=== PATIENT | female | born 1975 | race Caucasian/White ===

== ENCOUNTER 2019-07-01 09:16 | Emergency (ER) | payer BC, SELFPAY ==
[2019-07-01 09:25] VITALS: BP 135/86; PULSE 103; RESP 18; TEMP 37.2; O2SAT 100
--- NOTE | 2019-07-01 09:42 | ED.SKABFB ---
HPI - Skin/Abscess/Foreign Bdy General Chief complaint: Skin/Abscess/Foreign Body Stated complaint: knat bites Time Seen by Provider: 07/01/19 09:37 Source: patient and RN notes reviewed Mode of arrival: ambulatory Limitations: no limitations History of Present Illness HPI narrative: 44 old female presents with concern for possible insect bites. Reports red, warm, tender area on her left forearm that occurred an hour after being bit by an insect yesterday. Reports a similar red, warm area on her right thigh that occurred after being bit by an insect yesterday. She reports similar instances of this in the past for which she has seen an systems navigator. She reports she has been treated for cellulitis and for allergic reactions for these bites. Reports that the systems navigator told her these bites are not cellulitis. She denies malaise, fever. MD complaint: insect bite/sting Related Data Home Medications Medication Instructions Recorded Confirmed alprazolam 0.25 mg PO DAILY 07/01/19 07/01/19 Allergies Allergy/AdvReac Type Severity Reaction Status Date / Time esomeprazole [From Nexium] Allergy Hives Verified 07/01/19 09:36 Review of Systems Review of Systems: Narrative: CONSTITUTIONAL: Denies malaise, chills, sweats, or fever. EYES: Denies redness, or discharge. ENT: Denies difficulty swallowing, swollen tongue, swollen lips, sore throat. CARDIOVASCULAR: Denies chest pain, palpitations RESPIRATORY: Denies dyspnea. GASTROINTESTINAL: Denies abdominal pain, nausea, vomiting, diarrhea SKIN: Red, hard, tender area on the left forearm, reports red, hard area on the right thigh MUSCULOSKELETAL: Denies joint pain or myalgia. NEUROLOGIC: Denies numbness, weakness, or headache. All systems reviewed & are unremarkable except as noted in HPI and below PMFSH Family History Family History (Updated 09/12/15 @ 23:21 by DOCTOR UNKNOWN) Mother Patient's mother is in good health Father Patient's father is in good health Sibling Patient's brother is in good health Social History Social History Alcohol intake: never Comments At time of signature, agree with nursing past medical, surgical, social and family history. There is no relevant family history pertinent to the presenting complaint Exam Narrative: Exam Narrative: GENERAL: Well-appearing, well-nourished, and in no acute distress. HEAD: Normocephalic EYES: PERRLA, conjunctivae clear ENT: Mucous membranes moist. NECK: Supple. CHEST: No respiratory distress. Speaks in full sentences. HEART: Regular rate and rhythm. EXTREMITIES: Grossly normal range of motion. Grossly normal strength and sensation. SKIN: Warm, dry. 20 cm x 8 cm patch of induration, erythema, warmth, tenderness to the left forearm. 8 cm in diameter patch of erythema, induration noted to the right thigh NEURO: Alert and oriented x3. PSYCH: Normal mood and affect Course Course Emergency Course: Discussed with patient cellulitis versus local insect bite reaction. At this time symptoms seem to be caused by a local insect reaction. Discussed with patient cephalexin prescription to fill if symptoms worsen within the next 36 hours. Patient is aware of diagnosis, understands and agrees to treatment plan. Anticipatory guidance given. Patient agrees to follow-up as directed and is aware of reasons to seek care at the emergency department. Portions of this record may have been created with voice recognition software Vital Signs Vital signs: Vital Signs Temperature 98.9 F 07/01/19 09:25 Pulse Rate 103 H 07/01/19 09:25 Respiratory Rate 18 07/01/19 09:25 Blood Pressure 135/86 07/01/19 09:25 Pulse Oximetry 100 07/01/19 09:25 Temperature 98.9 F 07/01/19 09:25 Pulse Rate 103 H 07/01/19 09:25 Respiratory Rate 18 07/01/19 09:25 Blood Pressure 135/86 07/01/19 09:25 Pulse Oximetry 100 07/01/19 09:25 Reviewed. MDM - Skin/Abscess/Foreign Bdy MDM Narrative Medical decision jonnie
== END 2019-07-01 09:48 | disposition home or self-care (01) ==
PROVIDERS: Emergency Provider Nurse Practitioner
DX: S50.862A Insect bite (nonvenomous) of left forearm, initial encounter (principal); W57.XXXA Bitten or stung by nonvenomous insect and other nonvenomous arthropods, initial encounter
CPT/HCPCS: 99213; G0463

== ENCOUNTER 2021-11-29 11:05 | Emergency (ER) | payer BC, SELFPAY ==
[2021-11-29 11:10] VITALS: BP 163/96; PULSE 114; RESP 20; TEMP 36.7; O2SAT 98
[2021-11-29 11:17] VITALS: BP 163/96; PULSE 114; RESP 20; TEMP 36.7; O2SAT 98
--- NOTE | 2021-11-29 11:30 | ED.GENADULT ---
HPI - General Adult General Chief complaint: Upper Respiratory Infection Stated complaint: Sore Throat Source: patient Mode of arrival: ambulatory Limitations: no limitations History of Present Illness HPI narrative: Patient presents for evaluation of sore throat. Symptom onset 6 days ago. She has associated nasal congestion. She denies any fever, chills, nausea, vomiting. She has an occasional dry cough but nothing bothersome. No shortness of breath or chest pain. She has a few family members with similar symptoms. She took two home COVID tests which were negative. She had COVID at the start of this year. She smokes 1 pack/day. She tried taking DayQuil and other [id number] therapies without considerable improvement in her symptoms thereafter. Related Data Allergies Allergy/AdvReac Type Severity Reaction Status Date / Time esomeprazole [From Nexium] Allergy Intermediate Hives Verified 11/29/21 11:18 Review of Systems Review of Systems: CONSTITUTIONAL: Denies fever, chills, or sweats. EYES: Denies visual changes, redness, or discharge. ENT: Reports sore throat and sinus congestion. Denies nasal discharge or otalgia. CARDIOVASCULAR: Denies chest pain, palpitations, or edema. RESPIRATORY: Reports occasional nonproductive cough. Denies SOB. GASTROINTESTINAL: Denies abdominal pain, nausea, vomiting, or diarrhea. GENITOURINARY: Denies dysuria or hematuria. SKIN: Denies rash or itching. MUSCULOSKELETAL: Denies back pain, joint pain, or myalgia. NEUROLOGIC: Denies headache, numbness, dizziness, or weakness. PSYCHIATRIC: Denies anxiety or depression. [facility] Past Medical History Medical History Anxiety and depression Hypertension Surgical History Surgical History History of endometrial ablation History of gynecological procedure (10/03/08) hscope D&C/ Novasure Ablation History of gynecological procedure (02/27/08) DX Hscope History of gynecological procedure (01/22/04) bilateral tubal ligation partial right salpingectomy with benign paratubal hydatids of morgagni cyst History of gynecological procedure (01/15/00) vulvar biopsy - c/w condyloma acuminatum History of gynecological procedure (10/16/98) Hscope , emb History of gynecological procedure (03/12/98) suction D&C/ missed AB POC Family History Family History Mother Breast cancer, Onset Age: 63 Hypertension Depression Anxiety Father Patient's father is in good health Sibling Patient's brother is in good health Social History Social History Smoking packs per day: 1 Smoking cigarettes per day: 20.0 Smoking status: Current every day smoker Tobacco type: cigarettes Alcohol intake: never Substance use: never Substance use type: does not use Additional living arrangements comments: spouse 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 HEAD: Normocephalic, atraumatic. EYES: PERRLA and EOMI. ENT: Nares clear, no rhinorrhea or epistaxis. Mucous membranes moist. Oropharynx without tonsillar hypertrophy exudate or other lesions. There is posterior pharyngeal erythema. Bilateral TMs pearly watkins nonbulging NECK: Supple. No adenopathy or masses. No carotid bruits or JVD CHEST: Clear to auscultation. No respiratory distress. No wheezes rales or rhonchi HEART: Regular rate and rhythm. No murmur heard. Normal peripheral pulses. ABDOMEN: Soft, nontender, nondistended, normal active bowel sounds. EXTREMITIES: Normal range of motion. No edema. SKIN:
== END 2021-11-29 11:40 | disposition home or self-care (01) ==
PROVIDERS: Emergency Provider Nurse Practitioner
DX: J02.9 Acute pharyngitis, unspecified (principal); F17.210 Nicotine dependence, cigarettes, uncomplicated; I10 Essential (primary) hypertension
CPT/HCPCS: 87081; 87880; 99213; G0463

== ENCOUNTER 2022-01-24 10:46 | Emergency (ER) | payer BC, SELFPAY ==
--- NOTE | ~2022-01-24 | XR_ITS ---
EXAMINATION: XR chest 2V DATE: 01/24/2022 11:50 INDICATION: Cough. Fever. TECHNIQUE: Frontal and lateral views of the chest were obtained. COMPARISON: Chest 2 views 12/26/2011 FINDINGS: There is no pneumonia, pleural effusion, pneumothorax. The heart size is normal. There is a prominent left paracardial fat pad. IMPRESSION: 1. No acute cardiopulmonary disease. Reviewed, dictated and finalized at location A. ETHYLENE [employer]BINER
[2022-01-24 11:03] VITALS: BP 154/98; PULSE 109; RESP 18; TEMP 36.9; O2SAT 100
[2022-01-24 12:08] LABS: Influenza A QL RT-PCR Positive (Negative); Influenza B QL RT-PCR Negative (Negative); RSV RNA, RT-PCR Negative (Negative); SARS-CoV-2 RNA PCR Negative
--- NOTE | 2022-01-24 12:26 | ED.URI ---
HPI - URI/Sore Throat General Chief Complaint: Upper Respiratory Infection Stated Complaint: FLU S/SX Time Seen by Provider: 01/24/22 11:03 History of Present Illness HPI Narrative: 46-year-old female history of hypertension and anxiety presents to the emergency room for evaluation of generalized fatigue, body aches subjective fever, chest tightness with wheezing. Patient states her was recently diagnosed with influenza. Has been taking Tylenol and [id number] cough preparations with no improvement of her symptoms. Related Data Allergies Allergy/AdvReac Type Severity Reaction Status Date / Time esomeprazole [From Nexium] Allergy Intermediate Hives Verified 11/29/21 11:18 Review of Systems Review of Systems: CONSTITUTIONAL: Reports fever EYES: Denies visual changes, redness, or discharge. ENT: Denies rhinorrhea, congestion, sore throat, or otalgia. CARDIOVASCULAR: Denies chest pain, palpitations, or edema. RESPIRATORY: Reports cough and wheezing GASTROINTESTINAL: Denies abdominal pain, nausea, vomiting, or diarrhea. GENITOURINARY: Denies dysuria or hematuria. SKIN: Denies rash or itching. MUSCULOSKELETAL: Reports myalgias NEUROLOGIC: Denies headache, numbness, dizziness, or weakness. PSYCHIATRIC: Denies anxiety or depression. [facility] Past Medical History Medical History Anxiety and depression Hypertension Surgical History Surgical History History of endometrial ablation History of gynecological procedure (10/03/08) hscope D&C/ Novasure Ablation History of gynecological procedure (02/27/08) DX Hscope History of gynecological procedure (01/22/04) bilateral tubal ligation partial right salpingectomy with benign paratubal hydatids of morgagni cyst History of gynecological procedure (01/15/00) vulvar biopsy - c/w condyloma acuminatum History of gynecological procedure (10/16/98) Hscope , emb History of gynecological procedure (03/12/98) suction D&C/ missed AB POC Family History Family History Mother Breast cancer, Onset Age: 63 Hypertension Depression Anxiety Father Patient's father is in good health Sibling Patient's brother is in good health Social History Social History Smoking packs per day: 1 Smoking cigarettes per day: 20.0 Smoking status: Current every day smoker Tobacco type: cigarettes Alcohol intake: never Substance use: never Substance use type: does not use Additional living arrangements comments: spouse 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 HEAD: Normocephalic, atraumatic. EYES: Conjunctivae normal, PERRLA and EOMI. ENT: External nose normal, Nares clear, no rhinorrhea or epistaxis. Mucous membranes moist. Oropharynx without tonsillar hypertrophy exudate or other lesions. External ears normal, bilateral TMs normal bilaterally NECK: Supple. No adenopathy or masses. CHEST: Inspiratory wheezing HEART: Regular rate and rhythm. No murmur heard. Normal peripheral pulses. ABDOMEN: Soft, nontender, nondistended, normal active bowel sounds. EXTREMITIES: Normal range of motion. No edema. No clubbing or cyanosis SKIN: Warm, dry, no rash. No noted wounds NEURO: No focal deficits. Alert and oriented x3. MAEW. CN's II-XI intact bilaterally, normal gait PSYCH: Cooperative. Normal mood and affect. Course Vital Signs Vital signs: Vital Signs Temperature 36.9 C 01/24/22 11:03 Pulse Rate 109 H 01/24/22 11:03 Respiratory Rate 18 01/24/22 11:03 Blood Pr
[2022-01-24 12:30] VITALS: PULSE 92; RESP 20
[2022-01-24] MEDS: ALBUTEROL SULFATE NEB 2.5 MG/3 ML INH INHALATION (12:35)
[2022-01-24] MEDS: IPRATROPIUM BR 0.02% INH SOLN 0.5 MG/2.5 ML VIAL INHALATION (12:37)
[2022-01-24 12:45] VITALS: PULSE 96; RESP 20
== END 2022-01-24 13:17 | disposition home or self-care (01) ==
PROVIDERS: Emergency Provider Nurse Practitioner Family
DX: J10.1 Influenza due to other identified influenza virus with other respiratory manifestations (principal); Z20.822 Contact with and (suspected) exposure to COVID-19; I10 Essential (primary) hypertension; F17.200 Nicotine dependence, unspecified, uncomplicated
CPT/HCPCS: 71046; 87637; 94640; 96372; 99283; J1100

== ENCOUNTER 2022-05-12 09:02 | Emergency (ER) | payer BC, SELFPAY ==
--- NOTE | ~2022-05-12 | XR_ITS ---
Clinical Indication: Chest pain PA and lateral views of the chest: Comparison: 01/24/2022 Findings: The lungs are clear, without evidence of focal consolidation or pleural effusion. Cardiome diastinal silhouette is within normal limits. Bones and soft tissues are unremarkable. Impression: Normal chest. Reviewed, dictated and finalized at location . Impression: Normal chest.
--- NOTE | 2022-05-12 09:09 | ECG_ITS ---
Measurements Intervals Rover Rate: 105 P: 63 NM: 128 QRS: 65 QRSD: 90 T: 50 QT: 317 QTc: 420 Interpretive Statements SINUS TACHYCARDIA POSSIBLE LEFT ATRIAL ENLARGEMENT MINIMAL Q WAVES- INFERIOR LEADS BORDERLINE ST ABNORMALITY- INF/LAT LEADS BORDERLINE ECG NO PREVIOUS ECG AVAILABLE FOR COMPARISON Electronically Signed On 05-12-2022 9:51:40 CDT by Khoa Soto D.O.
[2022-05-12 09:10] VITALS: BP 154/86; PULSE 112; RESP 20; TEMP 36.3; O2SAT 100
[2022-05-12 09:27] LABS: Basophils Absolute Auto 0.1 K/mm3 (0.0-0.1); Basophils Percent Auto 0.8 % (0.2-1.2); Eosinophils Absolute Auto 0.1 K/mm3 (0-0.3); Eosinophils Percent Auto 0.9 % (0-4.4); Hematocrit 44.9 % (37.0-47.0); Hemoglobin 15.2 g/dL (12.0-15.0); Immature Granulocyte Absolute 0.08 K/mm3 (0.00-0.031); Immature Granulocyte Percent A 0.7 % (0-0.5); Lymphocytes Absolute Auto 3.07 K/mm3 (0.9-3.2); Lymphocytes Percent Auto 27.7 % (18.3-44.2); Mean Corpuscular HGB Conc 33.9 g/dl (32-36); Mean Corpuscular Hemoglobin 32.4 pg (26-34); Mean Corpuscular Volume 95.7 fl (80-100); Mean Platelet Volume 9.2 fl (7.4-10.4); Monocytes Absolute Auto 0.9 K/mm3 (0.1-0.6); Monocytes Percent Auto 8.5 % (2.6-8.5); Neutrophils Absolute Auto 6.8 K/mm3 (1.3-6.7); Neutrophils Percent Auto 61.4 % (45.5-73.1); Platelet Count Result 312 k/mm3 (150-375); Red Blood Count 4.69 M/mm3 (4.2-5.4); Red Cell Distribution Width 13.1 % (11.5-14.5); White Blood Count 11.1 K/mm3 (4.5-10.0)
[2022-05-12 09:37] LABS: Alanine Aminotransferase 20 U/L (6-35); Albumin Level 4.2 g/dL (3.5-5.1); Alkaline Phosphatase 83 U/L (38-126); Anion Gap 5 mmol/L (8-16); Aspartate Amino Transferase 18 U/L (14-36); Bilirubin,Total 0.4 mg/dL (0.2-1.3); Blood Urea Nitrogen 12 mg/dL (7-17); Calcium 9.2 mg/dL (8.4-10.2); Carbon Dioxide 28 mmol/L (22-30); Chloride 106 mmol/L (98-107); Estimated CRCL calculation 90 ml/min; Estimated Glomerular Filt Rate > 60; Glucose 90 mg/dL (65-110); Lipase 133 U/L (23-300); Potassium 3.9 mmol/L (3.4-5.0); Sodium 139 mmol/L (137-145)
[2022-05-12 09:41] LABS: INR 0.9; Prothrombin Time 11.7 Seconds (11.1-14.7)
[2022-05-12 09:49] LABS: Troponin I < 0.012 ng/mL (0.000-0.034)
[2022-05-12] MEDS: ASPIRIN 81 MG CHEWABLE TABLET 324 MG PO (09:50)
[2022-05-12] MEDS: KETOROLAC (*BKC) 60 MG/2 ML VIAL IM (10:17)
[2022-05-12 10:37] VITALS: BP 155/90; PULSE 96; RESP 16; O2SAT 100
--- NOTE | 2022-05-12 11:40 | ED.CHESTPAIN ---
HPI - Chest Pain General Chief Complaint: Chest Pain Stated Complaint: chest/back pain Time Seen by Provider: 05/12/22 09:49 History of Present Illness HPI narrative: Patient is a 46-year-old female who presents ER with left upper chest and back discomfort. Worse with physical movement and deep breath. Initially she had been having low back pain on left side that then moved up into the upper back. No fevers or chills or sweats. No exertional dyspnea. No coughing up blood. She is not on any hormones. No lower extremity swelling or calf pain. No exertional chest discomfort. Related Data Allergies Allergy/AdvReac Type Severity Reaction Status Date / Time esomeprazole [From Nexium] Allergy Intermediate Hives Verified 11/29/21 11:18 Review of Systems Review of Systems: All systems reviewed & are unremarkable except as noted in HPI and below Constitutional: Constitutional: Denies chills, Denies fatigue and Denies fever(s) ENT: Denies nasal congestion and Denies sore throat Cardiovascular: Cardiovascular: Reports chest pain, Denies rapid heart rate and Denies radiating jaw, neck or arm pain Respiratory: Respiratory: Denies cough and Denies dyspnea Gastrointestinal: Gastrointestinal: Denies abdominal pain, Denies diarrhea, Denies nausea and Denies vomiting Genitourinary: Genitourinary: Denies flank pain PMFSH Past Medical History Medical History Anxiety and depression Hypertension Surgical History Surgical History History of endometrial ablation History of gynecological procedure (10/03/08) hscope D&C/ Novasure Ablation History of gynecological procedure (02/27/08) DX Hscope History of gynecological procedure (01/22/04) bilateral tubal ligation partial right salpingectomy with benign paratubal hydatids of morgagni cyst History of gynecological procedure (01/15/00) vulvar biopsy - c/w condyloma acuminatum History of gynecological procedure (10/16/98) Hscope , emb History of gynecological procedure (03/12/98) suction D&C/ missed AB POC Family History Family History Mother Breast cancer, Onset Age: 63 Hypertension Depression Anxiety Father Patient's father is in good health Sibling Patient's brother is in good health Social History Social History Smoking packs per day: 1 Smoking cigarettes per day: 20.0 Smoking status: Current every day smoker Tobacco type: cigarettes Alcohol intake: never Substance use: never Substance use type: does not use Living arrangements: other Additional living arrangements comments: spouse Occupation/Education: occupation 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 HEAD: Normocephalic, atraumatic. EYES: PERRL and EOMI. ENT: Mucous membranes moist. CHEST: Clear to auscultation. No respiratory distress. HEART: Regular rate and rhythm. Normal peripheral pulses. ABDOMEN: Soft, nontender, nondistended. EXTREMITIES: Normal range of motion. No edema. SKIN: Warm, dry, no rash. NEURO: Alert and oriented x3. PSYCH: Normal mood and affect. Course Course Emergency Course: D-dimer negative. Troponin negative. EKG reassuring. Pain improving. Recommend anti-inflammatories for home and follow-up with PCP. Patient verbalized understanding treatment plan. Vital Signs Vital signs: Vital Signs Temperature 97.3 F L 05/12/22 09:10 Pulse Rate 112 H 05/12/22 09:10 Respiratory Rate 20 05/12/22 09:10 Blood Pressure 154/86 H 05/12/22 09:10 Pulse Oximetry 100
[2022-05-12 12:10] VITALS: BP 142/80; PULSE 87; RESP 20; O2SAT 98
== END 2022-05-12 12:11 | disposition home or self-care (01) ==
PROVIDERS: Emergency Provider Emergency Medicine; PCP Family Medicine
DX: R07.89 Other chest pain (principal); I10 Essential (primary) hypertension; F17.210 Nicotine dependence, cigarettes, uncomplicated
CPT/HCPCS: 36415; 71046; 80053; 83690; 84484; 85025; 85380; 85610; 85730; 93005; 96372; 99284; A9270; J1885

== ENCOUNTER 2024-02-18 08:06 | Emergency (ER) | payer BC, SELFPAY ==
--- NOTE | 2024-02-18 08:09 | ED.URI ---
HPI - URI/Sore Throat General Chief Complaint: Upper Respiratory Infection Stated Complaint: CONGESTION/COUGH/RUNNY NOSE Time Seen by Provider: 02/18/24 08:10 Source: patient, RN notes reviewed and old records reviewed Mode of arrival: ambulatory Limitations: no limitations History of Present Illness HPI Narrative: 48-year-old female presents to the [facility] with cough, congestion and runny nose that started 11 days ago. Has been taking DayQuil, Benadryl and cough drops. States that she is feeling better but cough and congestion are continuing. Patient is a smoker. Patient does report on 05 February at all started with 1 day diarrhea. No longer with symptoms. Onset (ago): day(s) (11) Treatments prior to arrival: cold medicine Related Data Allergies Allergy/AdvReac Type Severity Reaction Status Date / Time esomeprazole (From Nexium) Allergy Intermediate Hives Verified 02/18/24 08:20 Review of Systems Review of Systems: All systems reviewed & are unremarkable except as noted in HPI and below Constitutional: Constitutional: Reports no additional constitutional complaints ENT: Reports as per HPI, Reports nasal congestion and Reports nasal discharge Cardiovascular: Cardiovascular: Reports no additional cardiovascular complaints, Denies chest pain and Denies dyspnea Respiratory: Respiratory: Reports as per HPI, Denies chest congestion, Reports cough and Denies dyspnea Musculoskeletal: Musculoskeletal: Reports no additional musculoskeletal complaints Integumentary/Breasts: Skin/Breast: Reports system reviewed and no additional complaints, except as docu PMFSH Past Medical History Medical History Hypertension Anxiety and depression Surgical History Surgical History History of endometrial ablation History of gynecological procedure (03/12/98) suction D&C/ missed AB POC History of gynecological procedure (10/16/98) Hscope , emb History of gynecological procedure (01/15/00) vulvar biopsy - c/w condyloma acuminatum History of gynecological procedure (01/22/04) bilateral tubal ligation partial right salpingectomy with benign paratubal hydatids of morgagni cyst History of gynecological procedure (02/27/08) DX Hscope History of gynecological procedure (10/03/08) hscope D&C/ Novasure Ablation Family History Family History Mother Breast cancer, Onset Age: 63 Hypertension Depression Anxiety Father Patient's father is in good health Sibling Patient's brother is in good health Social History Social History Smoking packs per day: 1 Smoking cigarettes per day: 20.0 Smoking status: Current every day smoker Tobacco type: cigarettes Alcohol intake: never Substance use: never Substance use type: does not use Lack of Transportation: No Lack of Food: Never True Current Housing: I Have Housing Concerned About Future Housing: No Difficulty Paying Gas/Electric Bills: No Difficulty Paying for Meds: No Currently Unemployed: No Education: High School Diploma/GED Difficulty w/ Childcare or Family Care: No Living arrangements: other Additional living arrangements comments: spouse Occupation/Education: occupation 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 There is no relevant family history pertinent to the patient complaint. Exam Const: General: cooperative, healthy appearing, comfortable, no acute distress, well developed, alert and well nourished Nutritional Appearance: well nourished Orientation/consciousness: patient oriented x3 Limitations: no limitations HENMT: Head: normal to inspection Ears: hearing grossly normal bilaterally, external ears normal, TM's normal bilaterally, mastoids normal, no periauricular adenopathy and Abnormal EAC present Face/Nose/Sinus: Normal external nose present, Normal nares present, Normal nasal mucous membranes and turbinates present, No nasal discharge present, normal facial exam, sinuses nontender and face symmetric Mouth: Yes Normal oral and palatal mucosa present, Yes lip normal, Yes tongue normal and Yes moist mucous membranes Throat: posterior oropharynx normal, uvula midline and no uvular edema Eyes: General: appearance normal, both eyes and all related structures Alignment and Position: alignment normal Neck: Neck: normal visual inspection, full ROM, no lymphadenopathy and no meningeal signs Chest: Chest palpation & inspection: normal inspection of the chest Resp: Effort & Inspection: normal respiratory effort and able to speak in complete sentences Auscultation: clear to auscultation bilaterally, no crackles, no rales, no rhonchi and no wheezes Cardio: Rate: regular rate Skin: General skin exam: normal color and no rashes or lesions noted Neuro: General: patient oriented x3, gait normal, moves all extremities and no meningeal signs Cognition (Neuro): normal cognition Speech: normal speech Gait exam (Neuro): Normal gait present Extrem: General: normal to inspection, full ROM, capillary refill normal and normal gait Psych: Appearance: grossly normal and well kempt Mental Status: mental status grossly normal Speech and movement: Normal speech and movement present and Clear speech present Affect: normal affect Attitude: cooperative Course Course Level of Care: Express Care Visit Vital Signs Vital signs: Vital Signs Temperature 97.9 F 02/18/24 08:12 Pulse Rate 102 H 02/18/24 08:12 Respiratory Rate 16 02/18/24 08:12 Blood Pressure 119/80 02/18/24 08:12 Pulse Oximetry 100 02/18/24 08:12 Oxygen Delivery Room Air 02/18/24 08:12 Temperature 97.9 F 02/18/24 08:12 Pulse Rate 102 H 02/18/24 08:12 Respiratory Rate 16 02/18/24 08:12 Blood Pressure 119/80 02/18/24 08:12 Pulse Oximetry 100 02/18/24 08:12 Oxygen Delivery Room Air 02/18/24 08:12 Reviewed MDM - URI/Sore Throat MDM Narrative Medical decision making narrative: Patient sitting comfortably in exam room. Nontoxic, vitals stable. Patient in no acute distress. Patient with 11 day history of cough, congestion. Patient is a smoker Due to length of of symptoms, smoker will cover with an antibiotic. Symptoms most likely viral, discussed this in detail with patient. Patient appropriate for outpatient treatment with close follow-up Discharge instructions reviewed with patient, as well as provided in writing per nursing staff. The instructions also include specific and strict return/GO TO THE ER as well as f/u information. All questions have been answered, and the patient deny any further questions with discharge and discharge plan. Some parts of this dictation were generated by voice recognition software and may contain typographical and/or grammatical inaccuracies. Differential Diagnosis Differential diagnosis: Likely upper respiratory infection, sinusitis, viral infection and bronchitis Critical Care Time Critical Care Time Critical Care Time: No Discharge Plan Discharge Clinical Impression: Bronchitis Upper respiratory infection Qualifiers: URI type: unspecified URI Qualified Code(s): J06.9 - Acute upper respiratory infection, unspecified Patient Disposition: Home, Self-Care Condition: Stable Instructions: Antibiotic Form, How to Stop Smoking (ED), Upper Respiratory Infection (ED), Acute Bronchitis (ED) Additional Instructions: Your symptoms are most likely viral but due to you being a smoker and length of symptoms we will cover you with an antibiotic for a possible secondary bacterial infection however viral coughs are lasting for several weeks. It is very important to treat your symptoms. Drink plenty of water, Gatorade, Pedialyte, ice pops or Jell-O. -Alternate Tylenol and Motrin per package directions for fever or pain. You can alternate every 4 hours -Antihistamine medication such as Zyrtec/Claritin/Jessie during the day can help improve symptoms. -doing daily nasal irrigations can help relieve pressure your sinuses. Things like a Neti pot -Use Flonase twice a day for 5 days then daily to help reduce the inflammation and dry up your sinuses. -You can also use Mucinex. Be sure to drink plenty of water with this medication at least 8 ounces with every dose and it is important to drink 8 to 10 glasses of water per day. Water is a natural decongestant -Eat and drink things that are easy to swallow, like tea or soup, or popsicles. -Oral rinses such as: Salt water gargles and/or may use topical anesthetic (eg. Chloraseptic spray) or lozenges to relieve dryness or throat pain). -Frequent hand washing or hand music box mechanic is one of the best ways to prevent spread of infection. -Using a vaporizer or humidifier at night will also help thin secretions and help with coughing up phlegm. -Follow up with primary care provider in 7-10 days if condition is not improving - For new or worsening symptoms go directly to the nearest ER Patient Language: Spanish Prescriptions: New doxycycline monohydrate 100 mg tablet 100 mg PO BID Qty: 14 0RF No Action alprazolam 0.25 mg tablet 0.25 mg PO DAILY PRN (Reason: vertigo) Qty: 30 0RF amlodipine 10 mg tablet 10 mg PO DAILY Qty: 90 0RF hydrochlorothiazide 25 mg tablet 25 mg PO DAILY Qty: 30 0RF Follow-up/Referrals: Liam Sibley DO [Physician] - 1 Week (express care follow up ) UNKNOWN,DOCTOR [Primary Care Provider] - Stand Alone Forms: Work/School Release IP Time of Disposition: 08:28
[2024-02-18 08:12] VITALS: BP 119/80; PULSE 102; RESP 16; TEMP 36.6; O2SAT 100
--- OUTSIDE RECORDS SUMMARY | 2024-02-25 07:40 | XMS_ITS | Clinical Summary ---
Author Organization [facility] Address [address] [place] [address] Care Team Providers Care Dinkey Motor Operator Name Role Phone Jesus Proctor MD Primary Care Provider [phone] Source Comments [facility] [employer],non-owned Affiliates and Associated Physician Practices is amultiple site organization consisting of ambulatory clinics and hospital sitesin [place], [place], [place] and [place]. This disclosure is being madepursuant to the Care Everywhere program and may not contain all information available regarding this patient. Last updated 17.[facility] [employer] Immunizations Name Administration Dates Next Due TDAP (7yrs+) 10/20/2016 Social History Tobacco Use Types Packs/Day Years Used Date Smoking Tobacco: Never Assessed Sex and Gender Information Value Date Recorded Sex Assigned at Not on file Gender Identity Not on file Sexual Orientation Not on file Plan of Treatment Health Maintenance Due Date Last Done Comments COLOGUARD (AGES 45-75) - COL ON CA SCREENING 1975 COLON MONITORING 1975 COLONOSCOPY - COLON CA SCREENING 1975 CT COLONOGRAPHY - COLON CA SCREENING 1975 Colorectal Cancer Screening 1975 FIT - COLON CA SCREENING 1975 FLEX SIG - COLON CA SCREENING 1975 LIPID TESTING 1975 MAMMOGRAM 1975 PAP SMEAR 1975 HIV SCREENING 06/20/1990 HEPATITIS C SCREENING 06/16/1993 HEPATITIS B VACCINE (1 of 3 - 19+ 3-dose series) 06/20/1994 DEPRESSION SCREENING 02/14/2023 COVID-19 VACCINE (2023-2 5 season) 2023 INFLUENZA VACCINE (#1) 2023 ZOSTER VACCINE (1 of 2) 06/20/2025 DTAP/TDAP/TD VACCINES (2 - T d or Tdap) 10/20/2026 10/20/2016 HIB VACCINE Aged Out No longer eligi ble based on patient's age to complete this topic HPV VACCINE Aged Out No longer eligi ble based on patient's age to complete this topic MENINGOCOCCAL VACCINE Aged Out No israel rhonda eligible based on patient's age to complete this topic PNEUMOCOCCAL VACCINE Aged Out No long er eligible based on patient's age to complete this topic Care Teams Dinkey Motor Operator Relationship Specialty Start Date End Date Jesus Proctor MD [address] [place] [address] PCP - General Internal Medicine 10/20/16
--- OUTSIDE RECORDS SUMMARY | 2024-02-25 07:40 | XMS_ITS | Referral Summary ---
Author Organization [facility] Address [address] [place] [address] Care Team Providers Care Photographic Laboratory Technician Name Role Phone Jesus Proctor MD Primary Care Provider [phone] Source Comments [facility],non-owned Affiliates and Associated Physician Practices is amultiple site organization consisting of ambulatory clinics and hospital sitesin [place], [place], [place] and [place]. This disclosure is being madepursuant to the Care Everywhere program and may not contain all information available regarding this patient. Last updated 17.[facility] Immunizations Name Administration Dates Next Due TDAP (7yrs+) 10/20/2016 Social History Tobacco Use Types Packs/Day Years Used Date Smoking Tobacco: Never Assessed Sex and Gender Information Value Date Recorded Sex Assigned at Not on file Gender Identity Not on file Sexual Orientation Not on file Plan of Treatment Not on file Care Teams Photographic Laboratory Technician Relationship Specialty Start Date End Date Jesus Proctor MD [address] [facility] [address] [place] [id number] PCP - General Internal Medicine 10/20/16
--- OUTSIDE RECORDS SUMMARY | 2024-02-25 07:40 | XMS_ITS | Patient Health Summary ---
Author Organization [facility] Address [address] [place] [address] Care Team Providers Care Information Strategist Name Role Phone Jesus Proctor MD Primary Care Provider [phone] Note from [facility],non-owned Affiliates and Associated Physician Practices is amultiple site organization consisting of ambulatory clinics and hospital sitesin [place], [place], [place] and [place]. This disclosure is being madepursuant to the Care Everywhere program and may not contain all information available regarding this patient. Last updated 17.[facility] Immunizations * TDAP (7yrs+)(Given 10/20/2016) Social History Tobacco Use Types Packs/Day Years Used Date Smoking Tobacco: Never Assessed Sex and Gender Information Value Date Recorded Sex Assigned at Not on file Gender Identity Not on file Sexual Orientation Not on file Procedures * DERMATOPATHOLOGY(Performed 05/10/2013) Results * PATHOLOGY TISSUE FOR DERMATOLOGY (05/10/2013 12:00 AM CDT) Result CASE: [id number] PATIENT: SUGEY SHARMA PATHOLOGIC DIAGNOSIS: Left lateral thigh distal: VERRUCA VULGARIS, SUPERFICIAL PORTIONS OF CLINICAL DATA: Wart. GROSS DESCRIPTION: Received is one formalin filled container labeled with the patient's name and designated left lateral thigh distal. The specimen consists of a shave biopsy measuring 6x5x2 mm. Jar 0. 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 ??The base of the lesion is not visualized. Electronically signed out by Davida Segura M.D., PhD. 05/14/2013 11:50:44AM [facility] Comment: Performed at: Dermatopathology Laboratory [facility] - Department of Dermatology [address], [address]th [place] [address] Phone number: [phone] FAX: [phone] 05/10/2013 05/11/2013 [facility] - PATHOLOGY/CYTO LOGY ORDERABLES Performing Organization Address City/State/[facility] Co ms Phone Number [facility] [address] [place] [address]. 5th Floor Lab [address] [phone] Care Teams Information Strategist Relationship Specialty Start Date End Date Jesus Proctor MD [address] [facility] [address] [place] [address] PCP - General Internal Medicine 10/20/16
--- OUTSIDE RECORDS SUMMARY | 2024-02-25 07:41 | XMS_ITS | Continuity of Care Document ---
Author Organization [facility] Address [address] [place] [id number] Phone Care Team Providers Care Special Inspector Name Role Phone Moreno Mock MD Unavailable Unavailable Allergies, Adverse Reactions, Alerts Substance Reaction Status Criticality No Known Allergies Active No Inform ation Medications Medication Instructions Dosage Effective Dates (start - stop) Status Comments Xanax 0.25 mg tablet take 1 tablet (0.25MG) by oral route every 4 - 6 hours 0.25 MG - Active PRN for anxiety, avoid driving or operate machines Procedures Procedure Date OFFICE/OUTPATIENT VISIT, EST OFFICE/OUTPATIENT VISIT, EST Advance Directives Directive Yes / No Effective Date File Name No Information Encounters Encounter Description Practice Location Reason(s) For Visit Diagnoses Date Provider Providers Copied on Encounter OFFICE/OUTPAT IENT VISIT, EST [facility], [address] [place], [address], tel:[phone] [facility] anxiety (chief complaint) Generalized anxiety disorder Nish Mayer. [address], [place], [address]. tel:[phone] Referring Provider: Moreno Mock, [address] [place], [address]. tel:[phone] [facility], [facility] [place], [address], [place] tel:[phone] [facility] No Information Nish Mayer. [address], [place], [address]. tel:[phone] [facility], [address] [place] [address], tel:[phone] [facility] No Information Nish Cavazos [address] [place], [place], [facility]. tel:[phone] [facility], [facility] [place], [place], [facility], tel:[phone] [facility] No Information Nish Cavazos [place] [address]. tel:[phone] OFFICE/OUTPAT IENT VISIT, EST [facility], [address] [place], [place], [facility], tel:[phone] [facility] neck pain (chief complaint)U TI (chief complaint) CHRONIC PAIN NECHEMATURIA NOS Nish Cavazos [address] [place] [address]. tel:[phone] Referring Provider: Moreno Mock [address] [place] [address]. tel:[phone] Family History Family Member Type Diagnosis Age At Onset Brother Problem (finding) Alive and well Father Problem (finding) Unknown Disease Problem (finding) Family history of Strok e Mother Problem (finding) COPD Payers Payer name Insurance type Covered green party ID Authoriza tion(s) No Information Social History Type Description Quantity Date Captured Comments Alcohol Use Details No Caffeine Use Details Unknown Tobacco Use Status No Information Smoking Status Current every day smoker 2012 Sex Female Vital Signs Date / Time: Height Weight BMI Pulse Rate Blood Pressure Temperature Respiratory Rate Body Surface Area Head Circumference BMI percentile Pulse Ox Inhaled Ox 6:01 PM 65.00 in 150.00 lbs 24.9 6 kg/m eter (2) 111 /min 132/85 mm[Hg] 98.5 F 16 /min Chief Complaint And Reason For Visit From encounter dated '03/02/2012 16:30'. anxiety (chief complaint) Plan Of Treatment Date Type Action Status Goal Tobacco cessation counseling completed Referral Ordered: Referral: Unknown. Evaluate and treat. ordered History Of Present Illness Encounter Date Complaint History Of Prese nt Illness No Information Instructions Date Instruction Additional Shareer gary education about exercise and str etching Related to CHRONIC PAIN NEC Assessments Type Assessment Date No Information Mental Status Date Cognitive Assessment Orientation - [place] ed to time, place, person, situation.
--- OUTSIDE RECORDS SUMMARY | 2024-02-25 07:41 | XMS_ITS | Encounter Summary ---
Author Organization [facility] Address [address] [place] [address] Care Team Providers Care Management Liaison Name Role Phone Jesus Proctor MD Primary Care Provider [phone] Reason for Visit * Reason Comments Imm Inj Encounter Details Date Type Department Care Team (Late st Contact Info) Description 10/20/2016 6:40 PM CDT Office Visit [facility] [address] [phone] Provider, [facility] Need for xhpvuilsjl-yrhrfyq-c ertussis (Tdap) vaccine (Primary Dx) Social History Tobacco Use Types Packs/Day Years Used Date Smoking Tobacco: Never Assessed Sex and Gender Information Value Date Recorded Sex Assigned at Not on file Gender Identity Not on file Sexual Orientation Not on file documented as of this encounter Progress Notes * Donal Alarcon APRN-CNP - 10/20/2016 6:25 PM CDT Pt presents for Tdap documented in this encounter Plan of Treatment Not on file documented as of this encounter Visit Diagnoses Diagnosis Need for wnqvblulki-sugoykr-gywpizkqa (Tdap) vaccine- Primary Need for prophylactic vaccination with combined qbhkkguite-lcrojou-cbnficwwy (DTP) vaccine documented in this encounter Care Teams Management Liaison Relationship Specialty Start Date End Date Jesus Proctor MD [address] [place] [phone] PCP - General Internal Medicine 10/20/16 documented as of this encounter
== END 2024-02-18 08:30 | disposition home or self-care (01) ==
PROVIDERS: Emergency Provider Nurse Practitioner
DX: J40 Bronchitis, not specified as acute or chronic (principal); J06.9 Acute upper respiratory infection, unspecified; I10 Essential (primary) hypertension; F17.210 Nicotine dependence, cigarettes, uncomplicated
CPT/HCPCS: 99213; G0463

== ENCOUNTER 2024-08-08 17:46 | Emergency (ER) | payer BC, SELFPAY ==
--- NOTE | ~2024-08-08 | XR_ITS ---
CHEST RADIOGRAPH, PA AND LATERAL CLINICAL HISTORY: chest pain MID WITH SHORTNESS OF BREATH X 2-3 DAYS . COMPARISON: 05/12/2022 TECHNIQUE: PA and lateral views of the chest. FINDINGS The cardiomediastinal silhouette is unremarkable. The lungs are clear. IMPRESSION: No focal infiltrate or effusion. Reviewed, dictated and finalized at location A.
--- NOTE | 2024-08-08 17:47 | ECG_ITS ---
Test Date: 2024-08-08 17:53:23 Measurements Intervals [place] Rate: 114 P: 55 UT: 96 QRS: 66 QRSD: 87 T: 59 QT: 327 QTc: 452 Interpretive Statements SINUS TACHYCARDIA WITH SHORT UT INTERVAL POSSIBLE LEFT ATRIAL ENLARGEMENT MINIMAL Q WAVES- INFERIOR LEADS BASELINE ARTIFACT- I, AVR, AVL ABNORMAL ECG No previous ECG available for comparison Electronically Signed On 08-08-2024 18:47:48 CDT by Khoa Soto D.O.
[2024-08-08 18:02] VITALS: BP 125/78; PULSE 106; RESP 20; TEMP 36.9; O2SAT 99
[2024-08-08 18:12] LABS: Basophils Absolute Auto 0.1 K/mm3 (0.0-0.1); Basophils Percent Auto 0.7 % (0.2-1.2); Eosinophils Absolute Auto 0.2 K/mm3 (0-0.3); Hematocrit 44.8 % (37.0-47.0); Hemoglobin 15.2 g/dL (12.0-15.0); Immature Granulocyte Absolute 0.04 K/mm3 (0.00-0.031); Immature Granulocyte Percent A 0.4 % (0-0.5); Lymphocytes Absolute Auto 3.32 K/mm3 (0.9-3.2); Lymphocytes Percent Auto 34.8 % (18.3-44.2); Mean Corpuscular HGB Conc 33.9 g/dl (32-36); Mean Corpuscular Hemoglobin 31.7 pg (26-34); Mean Corpuscular Volume 93.5 fl (80-100); Mean Platelet Volume 9.1 fl (7.4-10.4); Monocytes Absolute Auto 0.7 K/mm3 (0.1-0.6); Neutrophils Absolute Auto 5.2 K/mm3 (1.3-6.7); Neutrophils Percent Auto 55.1 % (45.5-73.1); Platelet Count Result 376 k/mm3 (150-375); Red Blood Count 4.79 M/mm3 (4.2-5.4); Red Cell Distribution Width 13.4 % (11.5-14.5); White Blood Count 9.5 K/mm3 (4.5-10.0)
[2024-08-08 18:20] LABS: Alanine Aminotransferase 15 U/L (6-35); Albumin Level 4.2 g/dL (3.5-5.1); Alkaline Phosphatase 95 U/L (38-126); Anion Gap 9 mmol/L (4-12); Aspartate Amino Transferase 23 U/L (14-36); Bilirubin,Total 0.2 mg/dL (0.2-1.3); Blood Urea Nitrogen 7 mg/dL (7-17); Calcium 8.8 mg/dL (8.4-10.2); Carbon Dioxide 22 mmol/L (22-30); Chloride 105 mmol/L (98-107); Estimated CRCL calculation 116 ml/min; Estimated Glomerular Filt Rate > 60; Glucose 92 mg/dL (65-110); Lipase 86 U/L (23-300); Potassium 3.3 mmol/L (3.4-5.0); Sodium 136 mmol/L (137-145); Total Protein 7.5 g/dL (6.3-8.2)
[2024-08-08 18:27] LABS: INR 0.9; Prothrombin Time 12.4 Seconds (11.1-14.7)
[2024-08-08 18:28] LABS: Partial Thromboplastin Time 30.9 Seconds (22.3-36.8)
[2024-08-08 18:32] LABS: Troponin I < 0.012 ng/mL (0.000-0.034)
== END 2024-08-08 22:49 | disposition left against medical advice (07) ==
LOC: ANHED 21:27
PROVIDERS: Emergency Provider Emergency Medicine; PCP Internal Medicine
DX: R07.9 Chest pain, unspecified (principal)
CPT/HCPCS: 36415; 71046; 80053; 83690; 84484; 85025; 85610; 85730; 93005; 99199